=== PATIENT | male | born 1990 | race Caucasian/White ===

== ENCOUNTER 2017-11-04 10:27 | Emergency (ER) | payer OTHER ==
[~2017-11-04] VITALS: Ht 180.3 cm; Wt 93.0 kg
[2017-11-04 10:29] VITALS: BP 149/89; PULSE 71; RESP 12; TEMP 98.2; O2SAT 99
--- NOTE | 2017-11-04 12:15 | PD ---
HPI Chief Complaint: ENT Complaint Time Seen by Provider: 11:01 Travel History International Travel<30 days: No Contact w/Intl Traveler<30days: No Traveled to known affect area: No History of Present Illness HPI 27-year-old male patient presents emergency department for evaluation of sore throat that started on Wednesday. Patient states he was around multiple family members that all had strep throat on , Wednesday. Patient is concerned that he might have strep throat. Patient denies any fevers, chills, malaise, nausea, vomiting, chest pain, shortness breath. Patient states he coughs intermittently due to throat irritation but it is not a productive cough. Patient denies any major medical history. Patient does not take any daily medication. Patient denies any tobacco, alcohol or drug use. [facility] Social History Tobacco Use: No Allergies-Medications (Allergen,Severity, Reaction): Coded Allergies: No Known Allergies (Verified Allergy, Unknown, 11/04/17) Reported Meds & Prescriptions Reported Meds & Active Scripts Active No Active Prescriptions or Reported Medications Review of Systems Except as stated in HPI: all other systems reviewed are Neg HENT: Positive: Sore Throat Physical Exam Narrative GENERAL: Well-nourished, well-developed 27-year-old male patient in no acute distress. Nontoxic appearing. SKIN: Focused skin assessment warm/dry. HEAD: Normocephalic. Atraumatic. EYES: No scleral icterus. No injection or drainage. THROAT: Mild pharyngeal injection, No exudates, or tonsillar hypertrophy. Airway is patent. NECK: Supple, trachea midline. No JVD or lymphadenopathy. CARDIOVASCULAR: Regular rate and rhythm without murmurs, gallops, or rubs. RESPIRATORY: Breath sounds equal bilaterally. No accessory muscle use. GASTROINTESTINAL: Abdomen soft, non-tender, nondistended. Data Data Last Documented VS Vital Signs Date Time Temp Pulse Resp B/P (MAP) Pulse Ox O2 Delivery O2 Flow Rate FiO2 11/04/17 10:29 98.2 71 12 149/89 (109) 99 Orders Orders Group A Rapid Strep Screen (11/04/17 11:35) Strep Culture (Group A) (11/04/17 11:45) Ed Discharge Order (11/04/17 12:15) MDM Medical Decision Making Medical Screen Exam Complete: Yes Emergency Medical Condition: Yes Differential Diagnosis Different diagnoses include but not limited to pharyngitis, URI, sinusitis, viral syndrome, Narrative Course Patient requests to be chested for strep due to his recent history of being exposed to it. Rapid strep negative. Patient's physical exam is consistent with a viral URI. Patient is discharged home with instructions for supportive care for viral symptoms. Diagnosis Primary Impression: Viral URI Referrals: Primary Care Physician Patient Instructions: General Instructions, Upper Respiratory Infection (ED) Additional Instructions: Please return to emergency department if your symptoms return or worsen. Follow up with your primary care provider. Alternate ibuprofen and Tylenol as needed for pain or fevers. Supportive care, stay hydrated, get enough rest, diet as tolerated. Scripts No Active Prescriptions or Reported Meds Disposition: 01 DISCHARGE HOME Condition: Stable Xochilt Borja Nov 04, 2017 12:15
== END 2017-11-04 12:36 | disposition home or self-care (01) ==
LOC: NEPK 10:27
DX: J02.9 Acute pharyngitis, unspecified (principal)
CPT/HCPCS: 87081; 87880; 99282